=== PATIENT | male | born 1950 | race Caucasian/White ===

== ENCOUNTER 2017-04-30 21:21 | Inpatient (IN) | payer MEDICARE, OTHER ==
[~2017-04-30] VITALS: Ht 177.8 cm; Wt 119.7 kg
--- NOTE | ~2017-04-30 | DS ---
PATIENT'S NAME: HUMBLE KELLOGG [facility] AGE: 67 Y [address] ROOM: [id number] [place], [place] [address] LOCATION: GPCU ADMIT DATE: 04/30/2017 Discharge Summary DISCHARGE DATE: 05/07/2017 FAMILY PHYSICIAN: Thang Moctezuma MD ATTENDING PHYSICIAN: Micah Puga DIAGNOSES: 1. Pelvic abscess, secondary to either perforated diverticulitis or perforated appendicitis. 2. Bowel obstruction, secondary to inflammatory change from diverticulitis versus appendicitis. 3. Sepsis. 4. Type 2 diabetes mellitus. 5. Essential hypertension. 6. Chronic thrombocytopenia. PROCEDURE PERFORMED: CT-guided drain placement into the pelvic abscess by Dr. Fritz. SUMMARY: Humble Kellogg is a 67-year-old male, who was transferred to [facility] on April 30, 2017, from [place], [place], with abdominal pain and distention along with vomiting. CT scan in [place] revealed an area of inflammatory change in the right abdomen, felt to likely represent perforated diverticulitis. There were small air bubbles that were contained with possible beginning abscess. Appendicitis could not be ruled out. The patient was evaluated by Dr. Puga and was admitted to the progressive care unit. He was kept n.p.o. An NG tube was placed to suction. Zosyn and Flagyl were started for antibiotic therapy and subcutaneous heparin for DVT prophylaxis. Activity was allowed as tolerated. Hospitalist was consulted for medical management. On May 01, the patient continued to be very distended. He was uncomfortable due to the distention, but no significant pain, otherwise. His white blood cell count was 18,500. He was afebrile. NG output was high. On May 02, the patient's white blood cell count was down to 13.6. He continued to be afebrile. His NG tube fell out while he was in the shower. This was not replaced. On May 03, white blood cell count remained at 13.6. He was passing some gas and had a couple of bowel movements. He was started on clear liquid diet. On May 04, the white blood cell count increased to 17.7 and on May 05, white blood cell count was up to 18.7. The patient was advanced to full liquids, but a repeat CT scan was obtained and this did show a 16.7 x 6.3 cm pelvic abscess. Arrangements were made for the patient to undergo a CT-guided percutaneous drainage of the abscess on May 06. His white blood cell count was up to 19.0. Following the procedure, he was allowed diet as tolerated. On May 07, the patient was doing well with the drain. He was tolerating diet. He still had some intermittent abdominal distention, but this would get better PATIENT'S NAME: HUMBLE KELLOGG [facility] AGE: 67 Y [address] ROOM: [id number] [place], [place] [address] LOCATION: GPCU ADMIT DATE: 04/30/2017 Discharge Summary DISCHARGE DATE: 05/07/2017 FAMILY PHYSICIAN: Thang Moctezuma MD ATTENDING PHYSICIAN: Micah Puga with time after eating. His white blood cell count was down to 16.2. He was afebrile. The patient was wanting to go home. Tentative arrangements are being made for the patient to possibly discharge later today. DISCHARGE INSTRUCTIONS: Include no restrictions on diet or activity. A followup appointment has been scheduled with Dr. Puga on May 17 at 10:45 a.m. The patient will be instructed on drain care. He is to flush the drain twice a day with 10 mL of saline. He is to record the output on a flow sheet daily in 24-hour intervals. DISCHARGE MEDICATIONS: Include: 1. Colace 100 mg p.o. twice daily which is hgwj-pap-etkujtu. Continue home medicine of: 1. Lopressor 50 mg p.o. twice daily. 2. Prinivil 20 mg p.o. twice daily. 3. Ibuprofen 400 mg p.o. twice daily. 4. Glucophage 1000 mg p.o. twice daily. 5. Tradjenta 5 mg p.o. daily. 6. Fish oil 500 mg p.o. daily. 7. Cinnamon bark 500 mg p.o. twice daily. 8. Garlic 1 tabs p.o. daily. 9. Bilberry 1000 mg p.o. daily. 10. Aspirin 325 mg p.o. q.h.s. 11. CPAP device per home settings. Prescription was written for: 1. Ciprofloxacin 500 mg 1 p.o. q.12 hours x10 days. 2. Metronidazole 500 mg 1 p.o. q.8 hours x10 days. The patient did have concerns that he would not be able to get to his pharmacy this evening. Therefore, I have written for additional ciprofloxacin 500 mg, dispensing 2; and metronidazole 500 mg, dispensing 3 from the [facility]. Also, we will dispense normal saline flushes, 10 mL, to flush the drain twice a day, dispensing 30. Gram stain on the pelvic abscess fluid showed no organisms. Cultures are pending at this time. For specifics on day-to-day care, please refer to the hospital chart. RYAN MERCADO PA-C FOR MICAH PUGA MD PATIENT'S NAME: HUMBLE KELLOGG [facility] AGE: 67 Y [address] ROOM: [place] [address] LOCATION: GPCU ADMIT DATE: 04/30/2017 Discharge Summary DISCHARGE DATE: 05/07/2017 FAMILY PHYSICIAN: Thang Moctezuma MD ATTENDING PHYSICIAN: Micah Puga/constantine /[id number] CC: Thang Moctezuma MD d: 05/08/17 0237 t: 05/17/17 0612, DISCHARGE SUMMARY
--- NOTE | ~2017-04-30 | HP ---
PATIENT'S NAME: ADITYA KELLOGG [facility] AGE: 67 Y [address] ROOM: [place] [address] LOCATION: GPCU ADMIT DATE: 04/30/2017 History & Physical DISCHARGE DATE: FAMILY PHYSICIAN: Thang Moctezuma MD ATTENDING PHYSICIAN: Micah Ferreira DATE OF SERVICE: CHIEF COMPLAINT: Abdominal pain. HISTORY OF PRESENT ILLNESS: The patient is a 67-year-old male, who said on Saturday was his normal self. He began feeling ill early Saturday morning. On Saturday, he had a bowel movement, on Saturday also had a small bowel movement by later in the morning was feeling worse, began having what he describes as hot sweats. He said has had no bowel movement since Saturday, he really does not recall passing any flatus. He ended up going to the emergency room in [place] tonight, because of abdominal distention and vomiting. In [place], he had a CT scan performed. CT revealed an area of inflammatory change in the right abdomen felt to likely represent perforated diverticulitis, this appeared like small air bubbles that were contained with possible beginning abscess. Appendix could not be ruled out. The patient states he had never had pain similar to this in the past. He did have a colonoscopy this year. There were two polyps both benign. He does not recall telling him anything about diverticulosis. He never had pain similar to this in the past. Currently, he is feeling better after having 2400 mL removed in [place] through his NG tube. He has had no previous abdominal operations. CURRENT ILLNESSES: Sleep apnea, diabetes, hypertension. CURRENT MEDICATIONS: Include aspirin, cinnamon bark, CPAP, garlic tablet, ibuprofen, Tradjenta, lisinopril, metformin, metoprolol, [place] 3. SOCIAL HISTORY: Drinks three beers twice a week. Nonsmoker. PAST SURGICAL HISTORY: He has had back surgery as well as bilateral knee operations. FAMILY HISTORY: Noncontributory. PATIENT'S NAME: ADITYA KELLOGG [facility] AGE: 67 Y [address] ROOM: [place] [address] LOCATION: GPCU ADMIT DATE: 04/30/2017 History & Physical DISCHARGE DATE: FAMILY PHYSICIAN: Thang Moctezuma MD ATTENDING PHYSICIAN: Micah Ferreira REVIEW OF SYSTEMS: Denies headache or vision changes. No hyper or hypothyroidism. He does have the diabetes as well as hypertension. Denies coronary artery disease. Denies chest pain or shortness of breath, although does use CPAP at night for sleep apnea. He has had no melena, hematochezia. No hematuria or dysuria. PHYSICAL EXAMINATION: GENERAL: He is a pleasant, cooperative, 67-year-old male. HEENT: Head is normocephalic. Eyes are anicteric. An NG tube is in place. HEART: Mildly tachycardic. No murmurs audible. LUNGS: Clear to auscultation bilaterally. ABDOMEN: Distended. He has hypoactive bowel sounds. A reducible umbilical hernia is present. There is moderate tenderness to palpation. No rebound or guarding is present. EXTREMITIES: Warm. No edema. NEUROLOGIC: Gross motor is intact. ASSESSMENT: 1. Bowel obstruction secondary to perforation and phlegmon versus abscess. 2. Diabetes. 3. Hypertension. 4. Sleep apnea. PLAN: The patient will be admitted. We will treat him with IV antibiotics. Currently, he does have significant leukocytosis. We will monitor this. We discussed indications for surgery, various types of surgical intervention. We discussed possible etiologies, we discussed the high likelihood of needing drainage in the future, but for now, we will try to avoid operation as this area appears relatively well contained. MICAH FERREIRA MD BJO/modl /[id number] D: [id number] T: [id number] HISTORY & PHYSICAL
--- NOTE | ~2017-04-30 | ECHO ---
Transthoracic Echocardiography Report (TTE) Demographics Patient Name ADITYA KELLOGG Date of Study 05/01/2017 Patient Number [id number] Visit Number [id number] Date of 1950 Room Number G6313 Accession Number [id number] Gender Male Age 67 year(s) Referring Josh Alanis MD Electroplating Sales Representative [employer] RVT Physician Physician Interpreting Edwina Casanova Civil Transportation Engineer Physician MD Supervising Ordering Physician Arelis Sommer MD/CHRISTEL GAMEZ Nurse Stress Client Delivery Specialist Conclusions Summary Normal LV/RV size and systolic function. The estimated left ventricular ejection fraction is 60-65%. Moderate concentric left ventricular hypertrophy. Diastolic assessment reveals Grade I diastolic dysfunction. No significant valvular abnormalities. The ascending aorta appears moderately dilated. The maximum diameter measures 3.9 cm. Procedure Type of Study TTE procedure:2D Echocardiogram. Procedure Date Date: 05/01/2017 Start: 08:10 AM Study Location: Inpatient Portable Technical Quality: Adequate visualization Indications:Abnormal ECG. Appropriate Use Criteria: 9 Patient Status: Routine HR: 78 bpm M-Mode/2D Measurements LV Diastolic Dimension: 5.07 cm LV Systolic Dimension: 3.13 cm LV Septum Diastolic: 1.62 cm LV PW Diastolic: 1.62 cm AO Root Dimension: 3 cm Cardiac Output: 5.39 l/min AV Cusp Separation: 2.1 cm RV Diastolic Dimension: 3.53 cm LVOT: 2.2 cm LVOT VTI: 18.2 cm RV Base: 3.3 cm LV Stroke volume: 69.15 ml RV Length: 7.62 cm TAPSE: 3.92 cm TDI-S': 28.5 cm/s Doppler Measurements AV Peak Velocity: 1.75 m/s MV Peak E-Wave: 0.55 m/s AV Peak Gradient: 12.25 mmHg MV Peak A-Wave: 0.68 m/s AV Mean Gradient: 7 mmHg MV E/A Ratio: 0.81 LVOT Peak Velocity: 0.99 m/s MV P1/2t: 86 msec TR Gradient:28.52 mmHg Estimated RAP:10 mmHg Estimated PASP: 38.52 mmHg Estimated RVSP: 39 mmHg A' Septal Velocity: 0.13 m/s E' Septal Velocity: 0.08 m/s A' Lateral Velocity: 0.15 m/s E' Lateral Velocity: 0.06 m/s Findings Left Ventricle Mild to moderate concentric left ventricular hypertrophy. Diastolic assessment reveals Grade I diastolic dysfunction. Right Ventricle Normal right ventricle structure and function. Left Atrium Normal left atrial size. Right Atrium IVC measures 1.53 cm with inspiratory collapse. Mitral Valve Trivial mitral regurgitation by color Doppler. Aortic Valve The aortic valve is mildly sclerotic. Tricuspid Valve Mild tricuspid regurgitation by color Doppler. The pulmonary pressure (RVSP) is 39 mmHg. Pulmonic Valve The pulmonic valve is not well visualized. Pericardial Effusion Trivial pericardial effusion. Miscellaneous The ascending aorta appears moderately dilated. The maximum diameter measures 3.9 cm. Pleural Effusion No evidence of pleural effusion. Contractility Score LV regional wall motion:(0-Non visualized 1-Normal 2-Hypokinesis 3-Akinesis 4-Dyskinesis 5-Aneurysm) Signature dtt: PERRI CANTRELL dtd: 05/01/17 0810
--- NOTE | ~2017-04-30 | CON ---
PATIENT'S NAME: ADITYA KELLOGG [facility] AGE: 67 Y [address] ROOM: [address] [place], [place] [address] LOCATION: GPCU ADMIT DATE: 04/30/2017 Consultation DISCHARGE DATE: FAMILY PHYSICIAN: Thang Moctezuma MD ATTENDING PHYSICIAN: Micah Ferreira DATE OF CONSULTATION: 05/01/2017 REFERRING PHYSICIAN: JANE DENTON MD REQUESTING PHYSICIAN: Micah Ferreira MD. CONSULTING PHYSICIANS: Jane Denton MD. REASON FOR CONSULTATION: Medical management. HISTORY OF PRESENT ILLNESS: The patient is a 67-year-old male with past medical history of hypertension and cod-zyoctxi-ompekqbvi diabetes. He initially presented to [place] with 2 days history of abdominal pain and vomiting. There, on the CAT scan, he was found to have a high-grade small bowel obstruction with transition point as well as free fluid and small pockets of gas in his abdomen. He was accepted by Dr. Ferreira for higher level of surgical care. At this point, the presumed underlying diagnosis is a diverticular abscess. A hospitalist consult was requested for medical management. At this point, the patient reports that he did have considerable abdominal discomfort when the symptoms initially started and that was accompanied by chest discomfort as well. The chest discomfort has resolved with the placement of NG tube, as did his abdominal discomfort. At this point, he appears quite diaphoretic, but volunteers no new complaints. REVIEW OF SYSTEMS: All systems have been reviewed and negative aside from pertinent positives mentioned above. PAST MEDICAL HISTORY: 1. Tkr-jwcavwm-zdattuhhc diabetes, obstructive sleep apnea, on CPAP. 2. Essential hypertension, on lisinopril and metoprolol. SURGICAL HISTORY: Significant for a colonoscopy. PATIENT'S NAME: ADITYA KELLOGG [facility] AGE: 67 Y [address] ROOM: [facility] [place], [place] [address] LOCATION: GPCU ADMIT DATE: 04/30/2017 Consultation DISCHARGE DATE: FAMILY PHYSICIAN: Thang Moctezuma MD ATTENDING PHYSICIAN: Micah Ferreira FAMILY HISTORY: He does have a strong family history of coronary artery disease with 2 younger brothers, who both have had multiple stents in their 50s. The patient had a stress test 2 years ago, which apparently was unremarkable aside for "slightly enlarged heart." SOCIAL HISTORY: The patient is a retired shelton. He reports occasional alcohol use and does not endorse any other toxic habits. CURRENT MEDICATIONS: 1. Tradjenta 5 mg daily. 2. Lisinopril 20 mg b.i.d. 3. Metformin 1000 mg twice daily. 4. Metoprolol 50 mg b.i.d. 5. [place]-3 fatty acids. 6. Aspirin 325. 7. Bilberry capsule. 8. Cinnamon bark. 9. Garlic. 10. Ibuprofen. PHYSICAL EXAMINATION: VITAL SIGNS: His blood pressure is 141/70, pulse is 102, temperature 97.6, saturating 96% on 2 L nasal cannula. GENERAL: Appears as an obese, middle-aged male, diaphoretic and borderline toxic, but in no significant distress. NEUROLOGICAL: Exam is nonfocal. EYES: Shows pupils are equal and reactive to light. LYMPHATIC: Shows no cervical lymphadenopathy. ENDOCRINE: Shows no thyromegaly. LUNGS: Clear to auscultation. HEART: Rate is tachycardic and regular with no appreciable murmurs, gallops, or rubs. GI: Abdomen soft, distended. Hyperactive bowel sounds with some mild diffuse tenderness. : No costovertebral angle tenderness. VASCULAR: 2+ pedal pulses. MUSCULOSKELETAL: Shows no muscle or joint abnormalities. SKIN: Diaphoretic and warm. DIAGNOSTIC DATA: Review of the studies from outside facility are significant for an EKG, which shows sinus rhythm at 90 beats per minute with left axis deviation and an intraventricular conduction delay with a poor R-wave progression. A CBC, which shows white count of 26 and platelets of 70. An electrolyte panel PATIENT'S NAME: ADITYA KELLOGG [facility] AGE: 67 Y [address] ROOM: [place] [address] LOCATION: GPCU ADMIT DATE: 04/30/2017 Consultation DISCHARGE DATE: FAMILY PHYSICIAN: Thang Moctezuma MD ATTENDING PHYSICIAN: Micah Ferreira significant for bilirubin of 1.8, glucose of 211, BUN of 42. IMPRESSION AND RECOMMENDATIONS: This is a 67-year-old male, who is being admitted with suspected diverticular abscess and high-grade small bowel obstruction. In addition to the problems addressed by the Surgical Service, the following will need to be addressed. 1. Ixv-eybewzv-abekegctu diabetes. We will hold off on his Tradjenta and metformin for now and treat his Accu-Cheks with sliding scale while he is n.p.o. 2. Essential hypertension. The patient was placed on IV metoprolol by the Surgical Service. At this point, seeing as to how he is going to be on low intermittent suction, we will discontinue his all of his oral medications. We will upgrade his IV blood pressure regimen if needed. 3. Obstructive sleep apnea. The patient has been continued on CPAP. 4. Thrombocytopenia. His baseline platelet count is unknown, and we will monitor his complete CBCs daily. If he does not recover in his platelet count, he may need further workup after current episode resolves. 5. Abnormal EKG with strong family history of coronary artery disease; I think the patient will benefit from a 2-dimensional echocardiogram given an abnormal EKG and strong family history and I will order that. 6. Additional management will depend on clinical course. Thank you for allowing us to participate in the care of this gentleman. We will follow him with you and help manage his inpatient course. Time dedicated to this consultation is 35 minutes. MD GONZALO BOWMAN/constantine /[id number] d: 05/01/17 0343 t: 05/03/17 2325, CONSULTATION REPORT
[2017-04-30] MEDS ORDERED: GLUCOPHAGE1000 MG PO (21:58)
[2017-04-30] MEDS ORDERED: LOPRESSOR50 MG PO (21:59)
[2017-04-30] MEDS ORDERED: PRINIVIL (ZESTR20 MG PO (21:59)
[2017-04-30] MEDS ORDERED: TRADJENTA5 MG PO (22:00)
[2017-04-30] MEDS ORDERED: FISH OIL 500 M1 EAC1 PO (22:01)
[2017-04-30] MEDS ORDERED: GARLIC1 EAC1 PO (22:02)
[2017-04-30] MEDS ORDERED: CINNAMON500 MG PO (22:02)
[2017-04-30] MEDS ORDERED: BILBERRY500 MG PO (22:03)
[2017-04-30] MEDS ORDERED: ASPIRIN325 MG PO (22:03)
[2017-04-30] MEDS ORDERED: CPAP INH (22:05)
[2017-04-30] MEDS ORDERED: IBUPROFEN400 MG PO (22:08)
--- NOTE | 2017-04-30 23:19 | NUR ---
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 On Saturday morning patient became bloated, diaphoretic on and off, and had increasing abdomenal pain and "stretching." On Saturday morning patient's stomach had become more distended. Patient tried to drink a glass of water. Patient stated "felt to full, there was too much pressure," and patient threw up twice for about 20minutes. Patient then went to [place] [facility] where they did a CT and placed an NG tube. Over 2400mls were suctioned out in ER and 300mls in ambulance on the way to [facility]. Patient has a history of pre-diabetes, hypertension, back surgery with rods placed, hernia, polyps, and mass in January of this year with biopsies, and a colonoscopy in January of this year. Patient arrived to PCU via cart at [address] Ferreira is admitting and will be up to see patient tonight.
[2017-05-01 03:48] LABS: BASOPHIL # 0.1 K/uL (0.0-0.2); BASOPHIL % 0.3 %; EOSINOPHIL % 0.1 %; HEMATOCRIT 45.3 % (37.0-53.0); IMMATURE GRANULOCYTE # 0.2 K/uL (0.0-0.3); IMMATURE GRANULOCYTE % 0.9 %; LYMPHOCYTE # 0.8 K/uL (0.8-4.0); LYMPHOCYTE % 4.3 %; MCHC 33.1 gm/dL (32.0-36.5); MCV 87.5 fl (83.0-98.0); MONOCYTE # 1.1 K/uL (0.0-1.0); MONOCYTE % 5.7 %; MPV 11.9 fl (9.4-12.4); NEUTROPHIL # (ANC) 16.4 K/uL (1.4-9.0); NEUTROPHIL % 88.7 %; NRBC % 0 /100WBC (0-0.00); PLATELET COUNT 75 K/uL (150-450); RBC 5.18 M/uL (3.50-5.50); RDW-CV 14.6 % (11.9-14.6)
[2017-05-01 03:52] LABS: WBC 18.5 K/uL (4.0-11.0)
[2017-05-01 04:02] LABS: ALBUMIN 2.5 gm/dL (3.5-5.0); ALK PHOS 51 IU/L (33-138); ALT 15 IU/L (12-78); ANION GAP 10.3 (10.0-19.0); AST 10 IU/L (10-40); BLOOD UREA NITROGEN 41 mg/dL (6-24); CALCIUM 9.3 mg/dL (8.5-10.5); CHLORIDE 108 mMol/L (96-110); CO2 25 mMol/L (22-32); CREATININE 1.2 mg/dL (0.6-1.3); ESTIMATED GFR (MDRD EQUATION) > 60; POTASSIUM 4.3 mMol/L (3.7-5.1); SODIUM 139 mMol/L (135-145); TOTAL BILIRUBIN 1.1 mg/dL (0.0-1.5); TOTAL PROTEIN 6.8 g/dL (6.0-8.4)
--- NOTE | 2017-05-01 14:36 | NUR ---
Introduced self and role of care management to pt. Pt lives in [place]. He is more retired now. At this time he is not feeling the best. WIll continue to follow.
--- NOTE | 2017-05-01 16:32 | NUR ---
Significant Event: VSS. A/O X3. UP WITH 1 ASSIST, GB AND WALKER. AMBULATED IN HALLS WITH PT. NG TUBE TO LEFT NARE, EXACT OUTPUT UNKNOWN D/T LARGE AMOUNTS OF ICE CHIPS CONSUMED. GREEN OUTPUT. BOWEL SOUNDS HYPOACTIVE. REFUSED SHOWER. IV TO RIGHT AC WITH FLUIDS @ 125 ML/HR, INTERMITTENT IV ANTIBIOTICS. Follow up: CONTINUE TO MONITOR.
[2017-05-02 03:30] LABS: BASOPHIL % 0.3 %; EOSINOPHIL % 0.3 %; HEMATOCRIT 42.3 % (37.0-53.0); HEMOGLOBIN 13.8 g/dL (11.0-16.0); IMMATURE GRANULOCYTE # 0.2 K/uL (0.0-0.3); IMMATURE GRANULOCYTE % 1.7 %; LYMPHOCYTE # 1.2 K/uL (0.8-4.0); LYMPHOCYTE % 8.8 %; MCH 29.5 pg (27.0-34.0); MCHC 32.6 gm/dL (32.0-36.5); MCV 90.4 fl (83.0-98.0); MONOCYTE # 1.1 K/uL (0.0-1.0); MONOCYTE % 7.8 %; MPV 11.2 fl (9.4-12.4); NEUTROPHIL % 81.1 %; NRBC % 0 /100WBC (0-0.00); PLATELET COUNT 73 K/uL (150-450); RBC 4.68 M/uL (3.50-5.50); RDW-CV 14.9 % (11.9-14.6); WBC 13.6 K/uL (4.0-11.0)
[2017-05-02 03:48] LABS: ALBUMIN 2.2 gm/dL (3.5-5.0); ANION GAP 10.1 (10.0-19.0); BLOOD UREA NITROGEN 42 mg/dL (6-24); CHLORIDE 109 mMol/L (96-110); CO2 27 mMol/L (22-32); CREATININE 1.2 mg/dL (0.6-1.3); ESTIMATED GFR (MDRD EQUATION) > 60; MAGNESIUM 2.3 mg/dL (1.8-2.6); PHOSPHORUS 2.8 mg/dL (2.5-4.9); POTASSIUM 4.1 mMol/L (3.7-5.1); SODIUM 142 mMol/L (135-145)
--- NOTE | 2017-05-02 04:53 | NUR ---
Significant Event: PATIENT A/O X 3, CAN BE IMPATIENT AND IRRITABLE AT TIMES. HIGHEST TEMP 99.4. SBP 140'S TO 150'S. 02 AT 2L WITH CPAP HS 2L 02 BLEED. ABDOMEN REMIAINS VERY DISTINDED AND FIRM WITH BOWEL SOUNDS ABSENT TO RARE. NG TUBE INTACT TO INTERMITENT LOW SUCTION. PATIENT IS NPO EXCEPT FOR ICE CHIPS (OF WHICH HE EATS A LOT) AFTER SUBTRACTING PO ICE CHIPS FROM TOTAL NG TUBE OUTPUT HE HAD 420 ML OF ACTURAL NG OUTPUT Follow up: CONTINUE IV ANTIBIOTICS/NG TUBE.
--- NOTE | 2017-05-02 17:33 | NUR ---
PATIENT UP IN SHOWER TODAY AND ACCIDENTALLY PULLED OUT NG. Drea MERCADO PA-C NOTIFIED AND GAVE OK TO LEAVE OUT FOR NOW, REINSERT NG IF N/V. PATIENT HAD LARGE BM, PASSING GAS, NO C/O N/V. ICE CHIPS OK, MAX 1 CUP Q 2 HRS. VSS, SATS LOW 90'S ON RA.
--- NOTE | 2017-05-02 23:31 | NUR ---
Patient asked several times if he was having any n/v he stated no and that he has been passing gas seveal times throughout the night. Has refused to walk in hallway.
--- NOTE | 2017-05-03 05:21 | NUR ---
Significant event: A/o x 3. Up with 1 assist. IV to right AC with 1/2 ns 20 kcl at 125/hr runnig. Patients NG got pulled out yesterday while in the shower and he said he had felt kind of bad ever since. Temps continued to rise yesterday through last night but there was no c/o n/v. During the last assessment patient stated he felt much better temp was down to 98.8. He was able to have a bm as well.
[2017-05-03 06:48] LABS: BASOPHIL # 0.1 K/uL (0.0-0.2); BASOPHIL % 0.4 %; EOSINOPHIL # 0.1 K/uL (0.0-0.5); EOSINOPHIL % 0.4 %; HEMATOCRIT 41.8 % (37.0-53.0); HEMOGLOBIN 13.9 g/dL (11.0-16.0); IMMATURE GRANULOCYTE # 0.5 K/uL (0.0-0.3); IMMATURE GRANULOCYTE % 3.3 %; LYMPHOCYTE # 1.1 K/uL (0.8-4.0); LYMPHOCYTE % 7.7 %; MCH 29.6 pg (27.0-34.0); MCHC 33.3 gm/dL (32.0-36.5); MCV 89.1 fl (83.0-98.0); MONOCYTE # 1.4 K/uL (0.0-1.0); MONOCYTE % 10.4 %; MPV 10.7 fl (9.4-12.4); NEUTROPHIL # (ANC) 10.6 K/uL (1.4-9.0); NEUTROPHIL % 77.8 %; NRBC % 0 /100WBC (0-0.00); PLATELET COUNT 70 K/uL (150-450); RBC 4.69 M/uL (3.50-5.50); WBC 13.6 K/uL (4.0-11.0)
[2017-05-03 07:00] LABS: ALBUMIN 2.1 gm/dL (3.5-5.0); ANION GAP 9.9 (10.0-19.0); BLOOD UREA NITROGEN 34 mg/dL (6-24); CALCIUM 7.7 mg/dL (8.5-10.5); CHLORIDE 108 mMol/L (96-110); CO2 24 mMol/L (22-32); ESTIMATED GFR (MDRD EQUATION) > 60; POTASSIUM 3.9 mMol/L (3.7-5.1); SODIUM 138 mMol/L (135-145)
[2017-05-03 07:01] LABS: PHOSPHORUS 1.8 mg/dL (2.5-4.9)
--- NOTE | 2017-05-03 17:31 | NUR ---
Significant Event: A/O x3, cooperative with care with cares. VSS, SBPs 140s, HRs 70s, on room air. No c/o pain. Tolerating clear liquids at this time; patient instructed to take it slow. 40 mEq of potassium phosphate given today for a phosphorous level of 1.8. Patient reports have a bowel movement this shift; unobserved by both nurse et director of emergency nursing. Voids per urinal; dk lyndsay in color. Up with assist of 1 et walker; ambulate damon with physical therapy. Follow up:
[2017-05-04 04:15] LABS: BASOPHIL # 0.1 K/uL (0.0-0.2); BASOPHIL % 0.5 %; EOSINOPHIL # 0.1 K/uL (0.0-0.5); EOSINOPHIL % 0.6 %; HEMOGLOBIN 14.5 g/dL (11.0-16.0); IMMATURE GRANULOCYTE # 0.8 K/uL (0.0-0.3); IMMATURE GRANULOCYTE % 4.8 %; LYMPHOCYTE # 1.7 K/uL (0.8-4.0); LYMPHOCYTE % 10.1 %; MCH 29.3 pg (27.0-34.0); MCV 88.9 fl (83.0-98.0); MONOCYTE # 1.1 K/uL (0.0-1.0); MONOCYTE % 6.6 %; MPV 10.7 fl (9.4-12.4); NEUTROPHIL # (ANC) 13.3 K/uL (1.4-9.0); NEUTROPHIL % 77.4 %; NRBC % 0 /100WBC (0-0.00); PLATELET COUNT 76 K/uL (150-450); RBC 4.95 M/uL (3.50-5.50); RDW-CV 14.8 % (11.9-14.6)
[2017-05-04 04:17] LABS: WBC 17.2 K/uL (4.0-11.0)
--- NOTE | 2017-05-04 04:28 | NUR ---
Significant Event:A/Ox3. Low grade temp 100.2 relieved by tylenol to 98.4. HR 70-80 SR. SBP 130-160s. Abdomen distended with some c/o bloating, but relieved by passing gas. Liquid bowel movements noted. SBA/1 assist with transfers. PIV to R)AC with fliuds/ATB infusing. Follow up:Continue with POC.
[2017-05-04 04:30] LABS: ALBUMIN 2.2 gm/dL (3.5-5.0); ANION GAP 7.9 (10.0-19.0); BLOOD UREA NITROGEN 24 mg/dL (6-24); CALCIUM 7.8 mg/dL (8.5-10.5); CHLORIDE 107 mMol/L (96-110); CO2 27 mMol/L (22-32); CREATININE 0.9 mg/dL (0.6-1.3); ESTIMATED GFR (MDRD EQUATION) > 60; POTASSIUM 3.9 mMol/L (3.7-5.1); SODIUM 138 mMol/L (135-145)
--- NOTE | 2017-05-04 08:54 | NUR ---
A - PT SCREENED D/T LOS. PT ADMITTED W/ BOWEL OBSTRUCTION. GLU 136, BUN/BUFFING MACHINE OPERATOR 24/0.9, ALB 2.2, WBC 17.0. PERTINENT MEDS: INSULIN, ZOFRAN. DIET: CLEAR LIQUIDS X 1 DAY, TOLERATING. EST NEEDS: [id number] KCALS, 113 GM PROTEIN, 1 ML/KCAL FLUIDS. D - AT RISK W/ INADEQUATE ORAL INTAKE R/T NPO/CLEAR LIQUIDS SINCE ADMISSION AEB DIET ORDER. I - GOAL: 50-75% INTAKE BY DISMISSAL. M/E - WILL ADD ENSURE CLEAR W/ MEALS AND CHANGE TO GLUCERNA AFTER DIET ADVANCES. F/U IN 2-4 DAYS.
--- NOTE | 2017-05-04 16:53 | NUR ---
Significant Event: A/OX3, VSS ON ROOM AIR, SLIGHT TEMP OF 100.2 THIS AFTERNOON. NO COMPLAINTS OF PAIN. PT. GETS UP SBA TO SELF IN ROOM, SHOWERED TODAY, SAT UP IN CHAIR FOR 1/2 OF THE SHIFT. HERE. PT. TO HAVE A CT SCAN OF ABDOMEN/PELVIS TOMORROW. C-DIFF WAS NEGATIVE. IVF STILL RUNNING @ 125mL/HR, CONTINUES ON ZOSYN & FLAGYL TO R)AC. AM LABS. COOPERATIVE WITH CARES. Follow up: CONTINUE WITH POC.
[2017-05-05 03:46] LABS: HEMATOCRIT 41.1 % (37.0-53.0); HEMOGLOBIN 13.8 g/dL (11.0-16.0); MCH 29.6 pg (27.0-34.0); MCHC 33.6 gm/dL (32.0-36.5); MPV 10.6 fl (9.4-12.4); PLATELET COUNT 69 K/uL (150-450); RBC 4.67 M/uL (3.50-5.50); RDW-CV 14.7 % (11.9-14.6)
[2017-05-05 03:48] LABS: WBC 18.7 K/uL (4.0-11.0)
[2017-05-05 04:08] LABS: ANION GAP 10.9 (10.0-19.0); BLOOD UREA NITROGEN 16 mg/dL (6-24); CALCIUM 7.5 mg/dL (8.5-10.5); CHLORIDE 106 mMol/L (96-110); CO2 24 mMol/L (22-32); CREATININE 0.8 mg/dL (0.6-1.3); ESTIMATED GFR (MDRD EQUATION) > 60; POTASSIUM 3.9 mMol/L (3.7-5.1); SODIUM 137 mMol/L (135-145)
--- NOTE | 2017-05-05 05:15 | NUR ---
Significant Event:A/Ox3. VSS on RA/Cpap at HS. Tylenol x1 for generalized discomfort and low grade temp 100.0. Transfers 1 assist with some difficulty d/t stiffness. BM x1 this shift. Passing lots of gas. WBC trending up again 18.7 today. Continued on zosyn and flagyl and IVF. Patient is positive on fluids almost 3L in 24hrs. Follow up:CT today to determine a plan.
[2017-05-05 05:27] LABS: ABSOLUTE NEUTROPHIL CT (ANC) 14.2 K/uL (1.4-9.0); BANDED NEUTROPHIL # 1.7 K/uL (0.0-0.1); BANDED NEUTROPHILS % 9 %; LYMPHOCYTE # 3.6 K/uL (0.8-4.0); LYMPHOCYTE % 19 %; MONOCYTE # 0.6 K/uL (0.0-1.0); SEGMENTED NEUTROPHIL # 12.5 K/uL (1.4-9.0); SEGMENTED NEUTROPHIL % 67 %
--- NOTE | 2017-05-05 16:52 | NUR ---
Significant Event: A/OX3, VSS ON ROOM AIR. UP AD BRENDON IN ROOM. BM X4 THIS SHIFT. NPO AFTER MIDNIGHT FOR ABSCESS DRAIN PLACEMENT. CT SCAN DONE TODAY. HOLDING AM HEPARIN SUB-Q DOSE. NO COMPLAINTS OF PAIN. CHANGED TO FULL LIQUID DIET. CONTINUES ON IVF & ABX TO R)AC IV. UP TO CHAIR TODAY. Follow up: CONTINUE WITH POC.
--- NOTE | 2017-05-06 04:50 | NUR ---
Significant Event:A/Ox3. Afebrile. VSS on RA and CPAP. No c/o pain. Abd still distended and firm. Transfers minimal assist with stiff gait. NPO since midnight for drain placement by IR to abscess. PIV to R)AC infusing IVF and ATB. No permits on chart or R/B. Surgical checklist started. Follow up:IR to place drain. Continue with POC.
[2017-05-06 05:49] LABS: HEMOGLOBIN 13.5 g/dL (11.0-16.0); MCH 28.8 pg (27.0-34.0); MCHC 32.9 gm/dL (32.0-36.5); MCV 87.4 fl (83.0-98.0); MPV 10.4 fl (9.4-12.4); PLATELET COUNT 71 K/uL (150-450); RBC 4.69 M/uL (3.50-5.50); RDW-CV 14.9 % (11.9-14.6)
[2017-05-06 05:58] LABS: INR - (THERAPEUTIC) 1.12 (0.92-1.07); PROTIME 11.8 SECONDS (9.8-11.4); PTT 28 SECONDS (25-32)
[2017-05-06 06:05] LABS: BLOOD UREA NITROGEN 10 mg/dL (6-24); CALCIUM 7.7 mg/dL (8.5-10.5); CHLORIDE 108 mMol/L (96-110); CO2 23 mMol/L (22-32); CREATININE 0.8 mg/dL (0.6-1.3); ESTIMATED GFR (MDRD EQUATION) > 60; SODIUM 137 mMol/L (135-145)
[2017-05-06 06:23] LABS: ABSOLUTE NEUTROPHIL CT (ANC) 15.4 K/uL (1.4-9.0); BANDED NEUTROPHIL # 0.4 K/uL (0.0-0.1); BANDED NEUTROPHILS % 2 %; LYMPHOCYTE # 1.9 K/uL (0.8-4.0); LYMPHOCYTE % 10 %; MONOCYTE # 1.1 K/uL (0.0-1.0); SEGMENTED NEUTROPHIL % 79 %
--- NOTE | 2017-05-06 09:10 | NUR ---
A - NUTRITION F/U. GLU 147, BUN/DECORATING MACHINE OPERATOR 10/0.8, WBC 19.0. PT NPO FOR DRAIN PLACEMENT. DIET PRIOR TO NPO WAS FULL LIQUIDS...PT WAS TAKING 75-100%. D - AT RISK W/ INADEQUATE ORAL INTAKE R/T DECREASED APPETITE AND LIQUID DIET PRIOR TO NPO AEB INTAKE SUMMARY AND DIET ORDER. I - GOAL: 75-100% INTAKE BY DISMISSAL. M/E - WILL SEND ENSURE CLEAR WHEN DIET RESUMES AND CHANGE TO GLUCERNA IF DIET FULL LIQUIDS OR SOLIDS. WILL F/U IN 2-4 DAYS.
--- NOTE | 2017-05-06 14:32 | NUR ---
Supportive visit with pt today. He is wanting food and ready for the drain to be placed.
[2017-05-07 04:34] LABS: HEMATOCRIT 40.6 % (37.0-53.0); HEMOGLOBIN 13.3 g/dL (11.0-16.0); MCH 28.6 pg (27.0-34.0); MCHC 32.8 gm/dL (32.0-36.5); MCV 87.3 fl (83.0-98.0); MPV 10.2 fl (9.4-12.4); PLATELET COUNT 77 K/uL (150-450); RBC 4.65 M/uL (3.50-5.50); RDW-CV 14.9 % (11.9-14.6)
[2017-05-07 04:43] LABS: WBC 16.2 K/uL (4.0-11.0)
[2017-05-07 04:52] LABS: ANION GAP 10.3 (10.0-19.0); BLOOD UREA NITROGEN 11 mg/dL (6-24); CALCIUM 7.7 mg/dL (8.5-10.5); CHLORIDE 107 mMol/L (96-110); CO2 25 mMol/L (22-32); CREATININE 0.8 mg/dL (0.6-1.3); ESTIMATED GFR (MDRD EQUATION) > 60; PHOSPHORUS 3.2 mg/dL (2.5-4.9); POTASSIUM 4.3 mMol/L (3.7-5.1); SODIUM 138 mMol/L (135-145)
--- NOTE | 2017-05-07 05:04 | NUR ---
Significant Event: A/0 X 3, AMBULATES STAND BY ASSIST, REFUSES WALKER. HAS BEEN COOPERATIVE WITH CARES DURING SHIFT. HIGHEST TEMP 99.1 DURING SECOND ASSESSMENT. HR 60-70'S, ALL OTHER VSS ON RA. HAS WORN CPAP HS. HE DID EAT HIS FIRST MEAL FOR SUPPER WITH NO COMPLICATIONS. DEPENDENT BAG DRAIN TO RIGHT ABDOMEN HAS SHADOW DRAINAGE ON DRESSING, DID HAVE 490 ML OUTPUT DURING SHIFT. IT'S TO BE FLUSHED WITH 10 ML NS BID. ACCU Q6. Follow up: RESTART OF HEPARIN NEEDS TO BE ADDRESSED. POSSIBLE D/C NEXT DAY OR TWO.
[2017-05-07 05:32] LABS: ABSOLUTE NEUTROPHIL CT (ANC) 12.3 K/uL (1.4-9.0); BANDED NEUTROPHIL # 1.3 K/uL (0.0-0.1); BANDED NEUTROPHILS % 8 %; LYMPHOCYTE # 1.9 K/uL (0.8-4.0); LYMPHOCYTE % 12 %; SEGMENTED NEUTROPHIL % 68 %
[2017-05-07] MEDS ORDERED: COLACE100 MG PO (12:22)
[2017-05-07] MEDS ORDERED: CIPRO500 MG PO (12:33)
[2017-05-07] MEDS ORDERED: FLAGYL500 MG PO (12:43)
[2017-05-07] MEDS ORDERED: NORMAL SALINE FL5 ML (12:46)
--- NOTE | 2017-05-07 15:24 | NUR ---
1515: DISMISSED PER WHEEL CHAIR. DISMISSAL INSTRUCTIONS, PRESCRIPTIONS, INSTRUCTIONS ON CARE OF DRAIN AND FLUSHING OF DRAIN SENT ALONG WITH PT WELL PERSONAL BELONGINGS. PT REFUSED A DAY'S SUPPLY OF NEW MEDICATIONS FROM HOSPITAL AND INFORMED THIS NURSE THAT HE WOULD NOT WAIT TO FILL HIS PRESCRIPTIONS. PT ASKED THAT FOR THIS NURSE TO CALL [facility] IN [place] TO SEE IF THEY HAVE THE NEW MEDICATIONS ON HAND. I DID CALL THEM AND INFORMED THE PATIENT AND HIS THAT [facility] HAS HIS MEDICATIONS ON HAND. PATIENT STATES HE WILL FILL HIS PRESCRIPTIONS TODAY. I INFORMED HIM OF THE IMPORTANCE OF GETTING HIS ANTIBIOTICS. PT ALSO REFUSES SALINE FLUSHES FROM HOSPITAL HE STATES HE DOES NOT WANT TO PAY FOR THEM. PT STATES " MY SISTER IS A HEAD NURSE IN SURGERY AT [employer] AND I WILL JUST HAVE HER GET ME SOME OUT THE BACK DOOR IF YOU KNOW WHAT I MEAN." I INFORMED PT OF IMPORTANCE OF FLUSHING TUBE BID ORDERED. PATIENT VERBALIZES UNDERSTANDING.
== END 2017-05-07 15:15 | disposition disaster alternative care site (69) | DRG 871 ==
LOC: GPCU 21:21
PROVIDERS: Internal Medicine; Physician Assistant; Surgery; ADMIT Surgery
PROC: B246ZZZ Ultrasonography of Right and Left Heart (ICD-10-PCS; principal; 2017-05-01)
DX: A41.9 Sepsis, unspecified organism (principal); K35.2 Acute appendicitis with generalized peritonitis; K56.60 Unspecified intestinal obstruction; D69.6 Thrombocytopenia, unspecified; K57.80 Diverticulitis of intestine, part unspecified, with perforation and abscess without bleeding; I10 Essential (primary) hypertension; E11.9 Type 2 diabetes mellitus without complications; Z82.49 Family history of ischemic heart disease and other diseases of the circulatory system
CPT/HCPCS: A9270; C1729; J1644; J2270; J2405; J2543; J3480; J7050; Q9967